=== PATIENT | female | born 1940 ===

== ENCOUNTER → 2020-02-09 10:02 | Outpatient (CLI) | payer MEDICARE, BC ==
--- NOTE | ~2020-02-09 | EC ---
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 Ao 143 cm/sec RVOT 64 cm/sec RA cm/sec PA 91 cm/sec AV Gradient Peak 8.16 mmHg AV Mean 4.02 mmHg AV Area 1.8 cm MV Gradient Peak 7.00 mmHg MV Mean 2.43 mmHg MV Area cm COMMENTS: Transplant Case Manager: 2 SIA XAVIER Worker'S Compensation Claims Examiner: 3 Dr. Dozier TAPE# PACS Pericardial Effusion N DATE OF SERVICE: Adequate 2D, color flow imaging, spectral Doppler, and M-Mode. LVH is present. LV internal dimension is normal. Wall motion is normal. EF is greater than or equal to 55%. Aortic valve is tricuspid. No evidence of stenosis by Doppler interrogation. Left atrium is mildly dilated at 4.5 cm. Mitral valve shows no prolapse. [id number] MR. Right sided chambers are grossly normal. Moderate TR. ECHOCARDIOGRAM REPORT [id number] DEBRA BERGMAN TRANSINT:[id number] Voice Confirmation ID: [id number] DOCUMENT ID: [id number] DOE GONSALEZ MD CC: [id number] DICTATION DATE: 02/11/201537 CHAMBER WALKER: 02/11/20 184 DEP CLI 02/09/20 [place] [id number] [place] [id number]
== END | disposition home or self-care (01) ==
LOC: D.HCCECHO 10:02
PROVIDERS: ATTEND Internal Medicine Interventional Cardiology
DX: I25.10 Atherosclerotic heart disease of native coronary artery without angina pectoris (principal)